=== PATIENT | female | born 1970 | race Caucasian/White ===

== ENCOUNTER 2016-12-10 09:39 | Emergency (ER) | payer OTHER ==
[~2016-12-10] VITALS: Ht 160 cm; Wt 68.9 kg
[2016-12-10 09:55] VITALS: BP 127/90
[2016-12-10 11:04] LABS: MCH 30.1 PG (29.0-34.0); MCHC 34.3 G/DL (30.0-36.0); MCV 87.8 FL (83-99); PLATELET COUNT 228 K/uL (156-360); RBC DIS.WIDTH-CV 12.5 % (11.8-14.6); RBC DIS.WIDTH-SD 39.8 % (39-53); RED BLOOD COUNT 5.01 M/uL (3.80-5.20); WHITE BLOOD COUNT 9.8 K/uL (4.1-10.2)
[2016-12-10 11:16] LABS: CHLORIDE 109 mEq/L (99-109); POTASSIUM 3.6 mEq/L (3.7-5.4); SODIUM 143 mEq/L (136-147)
[2016-12-10 11:18] LABS: GLUCOSE 106 mg/dL (70-99)
[2016-12-10 11:19] LABS: ANION GAP 12 MEQ/L (2-14)
[2016-12-10 11:20] LABS: TOTAL BILIRUBIN 0.4 mg/dL (0.0-1.0)
[2016-12-10 11:22] LABS: ALKALINE PHOSPHATASE 80 IU/L (3-129); GFR ESTIMATE (CALCULATED) > 59 mL/min/
[2016-12-10 11:23] LABS: UREA NITROGEN (BUN) 7 mg/dL (9-23)
[2016-12-10 11:31] LABS: QUANTITATIVE HCG < 4.0 MIU/ML
[2016-12-10 11:54] LABS: ADD MIUA? YES; BILIRUBIN NEGATIVE; BLOOD SMALL; COLOR YELLOW ((YELLOW)); GLUCOSE (STRIP) NEGATIVE; KETONES NEGATIVE; LEUKOCYTES MODERATE; NITRITE NEGATIVE; PROTEIN (STRIP) 30; SPECIFIC GRAVITY 1.014 (1.000-1.030); UROBILINOGEN 0.2 MG/DL (0.2-1.0)
[2016-12-10 12:03] LABS: BACTERIA NONE SEEN /HPF; CALCIUM OXALATE CRYSTALS 2+ /HPF; EPITHELIAL CELLS RARE /HPF; MUCUS 1+ /LPF; UCUL ADDED? NO; WHITE BLOOD CELLS 20-30 /HPF (0-5)
[2016-12-10] MEDS ORDERED: MIRALAX17 GM PO (12:30)
[2016-12-10] MEDS ORDERED: BENTYL20 MG PO (12:30)
[2016-12-10] MEDS ORDERED: CIPRO500 MG PO (12:30)
== END 2016-12-10 13:00 | disposition home or self-care (01) ==
LOC: EME 09:39
DX: K59.00 Constipation, unspecified (principal); N39.0 Urinary tract infection, site not specified
CPT/HCPCS: 74022; 80053; 81003; 84702; 85027; 99281; 99283

== ENCOUNTER 2016-12-12 08:38 | Emergency (ER) | payer OTHER ==
[~2016-12-12] VITALS: Ht 154.9 cm; Wt 67.0 kg
[~2016-12-12 08:38] MED LIST: BENTYL20 MG PO; CIPRO500 MG PO; MIRALAX17 GM PO
[2016-12-12 09:37] LABS: EOSINOPHIL (%) 0 % (0-5); IMMATURE GRANULOCYTE (%) 0.2 % (0.0-0.7); INSTRUMENT ABS NEUTROPHIL CT 6.1 K/uL; LYMPHOCYTE COUNT 1.9 K/uL (1.0-2.8); MCH 29.8 PG (29.0-34.0); MCHC 34.3 G/DL (30.0-36.0); MEAN PLAT.VOLUME 10.9 uM^3 (9.5-12.4); MONOCYTE (%) 5.9 % (3-12); MONOCYTE COUNT 0.5 K/uL (0-0.8); NEUTROPHIL (%) 71.6 % (45-76); NEUTROPHIL COUNT 6.1 K/uL (1.8-6.4); PLATELET COUNT 216 K/uL (156-360); RBC DIS.WIDTH-CV 12.4 % (11.8-14.6); RBC DIS.WIDTH-SD 39.7 % (39-53); RED BLOOD COUNT 4.83 M/uL (3.80-5.20); WHITE BLOOD COUNT 8.5 K/uL (4.1-10.2)
[2016-12-12 09:45] LABS: CHLORIDE 109 mEq/L (99-109); POTASSIUM 3.4 mEq/L (3.7-5.4); SODIUM 141 mEq/L (136-147)
[2016-12-12 09:46] LABS: GLUCOSE 107 mg/dL (70-99)
[2016-12-12 09:48] LABS: ANION GAP 12 MEQ/L (2-14)
[2016-12-12 09:50] LABS: GFR ESTIMATE (CALCULATED) > 59 mL/min/
[2016-12-12 09:51] LABS: UREA NITROGEN (BUN) 8 mg/dL (9-23)
[2016-12-12] MEDS ORDERED: DONNATAL1 TABLET PO (10:45)
[2016-12-12] MEDS ORDERED: CONSTULOSE10 GM/15 M PO (10:45)
[2016-12-12 11:01] VITALS: BP 118/79
== END 2016-12-12 11:12 | disposition home or self-care (01) ==
LOC: EME 08:38
PROVIDERS: Emergency Medicine
DX: K59.00 Constipation, unspecified (principal)
CPT/HCPCS: 74020; 80048; 85025; 99281; 99284

== ENCOUNTER 2016-12-22 13:50 | Emergency (ER) | payer OTHER ==
[~2016-12-22] VITALS: Ht 157.5 cm; Wt 66.5 kg
[~2016-12-22 13:50] MED LIST changes: +CONSTULOSE10 GM/15 M PO; +DONNATAL1 TABLET PO
[2016-12-22 15:14] LABS: EOSINOPHIL (%) 0.1 % (0-5); HEMATOCRIT 43.2 % (36.0-46.0); IMMATURE GRANULOCYTE (%) 0.1 % (0.0-0.7); INSTRUMENT ABS NEUTROPHIL CT 5.6 K/uL; LYMPHOCYTE COUNT 1.9 K/uL (1.0-2.8); MCH 30.2 PG (29.0-34.0); MCHC 34.5 G/DL (30.0-36.0); MCV 87.4 FL (83-99); MEAN PLAT.VOLUME 10.5 uM^3 (9.5-12.4); MONOCYTE COUNT 0.6 K/uL (0-0.8); NEUTROPHIL (%) 68.9 % (45-76); NEUTROPHIL COUNT 5.6 K/uL (1.8-6.4); PLATELET COUNT 223 K/uL (156-360); RBC DIS.WIDTH-CV 12.8 % (11.8-14.6); RED BLOOD COUNT 4.94 M/uL (3.80-5.20); WHITE BLOOD COUNT 8.2 K/uL (4.1-10.2)
[2016-12-22 15:22] LABS: CHLORIDE 110 mEq/L (99-109); SODIUM 144 mEq/L (136-147)
[2016-12-22 15:24] LABS: GLUCOSE 93 mg/dL (70-99)
[2016-12-22 15:25] LABS: ANION GAP 14 MEQ/L (2-14)
[2016-12-22 15:28] LABS: GFR ESTIMATE (CALCULATED) > 59 mL/min/; UREA NITROGEN (BUN) 4 mg/dL (9-23)
[2016-12-22 15:36] LABS: QUANTITATIVE HCG < 4.0 MIU/ML
[2016-12-22 15:59] LABS: ADD MIUA? NO; BILIRUBIN NEGATIVE; BLOOD NEGATIVE; COLOR YELLOW ((YELLOW)); GLUCOSE (STRIP) NEGATIVE; KETONES 20; LEUKOCYTES NEGATIVE; NITRITE NEGATIVE; PROTEIN (STRIP) 30; UCUL ADDED? NO; UROBILINOGEN 0.2 MG/DL (0.2-1.0)
[2016-12-22 21:46] VITALS: BP 130/70
== END 2016-12-22 21:47 | disposition home or self-care (01) ==
LOC: EME 13:50
PROVIDERS: Emergency Medicine
DX: N20.0 Calculus of kidney (principal); F39 Unspecified mood [affective] disorder; F43.23 Adjustment disorder with mixed anxiety and depressed mood; F41.1 Generalized anxiety disorder
CPT/HCPCS: 80048; 81003; 84702; 85025; 90839; 99281; 99285; J1885; J7120

== ENCOUNTER 2016-12-22 23:03 | Inpatient (IN) | payer OTHER ==
[~2016-12-22] VITALS: Ht 157.5 cm; Wt 65.7 kg
[2016-12-23 00:18] LABS: BASOPHIL COUNT 0.1 K/uL (0-0.1); EOSINOPHIL (%) 0.1 % (0-5); HEMATOCRIT 42.2 % (36.0-46.0); IMMATURE GRANULOCYTE (%) 0.6 % (0.0-0.7); IMMATURE GRANULOCYTE COUNT 0.1 K/uL; INSTRUMENT ABS NEUTROPHIL CT 13.8 K/uL; LYMPHOCYTE COUNT 2.2 K/uL (1.0-2.8); MCH 29.9 PG (29.0-34.0); MCHC 33.2 G/DL (30.0-36.0); MEAN PLAT.VOLUME 10.9 uM^3 (9.5-12.4); MONOCYTE (%) 8.2 % (3-12); MONOCYTE COUNT 1.5 K/uL (0-0.8); NEUTROPHIL (%) 78.3 % (45-76); NEUTROPHIL COUNT 13.8 K/uL (1.8-6.4); PLATELET COUNT 220 K/uL (156-360); RBC DIS.WIDTH-CV 13.1 % (11.8-14.6); RBC DIS.WIDTH-SD 42.8 % (39-53); RED BLOOD COUNT 4.69 M/uL (3.80-5.20); WHITE BLOOD COUNT 17.7 K/uL (4.1-10.2)
[2016-12-23 00:28] LABS: CHLORIDE 113 mEq/L (99-109); POTASSIUM 3.6 mEq/L (3.7-5.4); SODIUM 145 mEq/L (136-147)
[2016-12-23 00:30] LABS: GLUCOSE 130 mg/dL (70-99)
[2016-12-23 00:31] LABS: ANION GAP 16 MEQ/L (2-14)
[2016-12-23 00:33] LABS: GFR ESTIMATE (CALCULATED) > 59 mL/min/
[2016-12-23 00:35] LABS: UREA NITROGEN (BUN) 6 mg/dL (9-23)
[2016-12-23 00:37] LABS: SALICYLATE < 5.0 MG/DL (15-30)
[2016-12-23 00:43] LABS: QUANTITATIVE HCG < 4.0 MIU/ML
[2016-12-23 00:54] LABS: SERUM ETHYL ALCOHOL < 10 mg/dL
[2016-12-23 06:10] VITALS: BP 129/81
[2016-12-23 07:47] VITALS: BP 117/68
[2016-12-23 14:32] LABS: EOSINOPHIL (%) 0.4 % (0-5); HEMATOCRIT 41.7 % (36.0-46.0); IMMATURE GRANULOCYTE (%) 0.4 % (0.0-0.7); INSTRUMENT ABS NEUTROPHIL CT 7.7 K/uL; LYMPHOCYTE COUNT 1.5 K/uL (1.0-2.8); MCH 29.5 PG (29.0-34.0); MCHC 32.4 G/DL (30.0-36.0); MCV 91.2 FL (83-99); MEAN PLAT.VOLUME 10.5 uM^3 (9.5-12.4); MONOCYTE (%) 8.6 % (3-12); MONOCYTE COUNT 0.9 K/uL (0-0.8); NEUTROPHIL (%) 75.6 % (45-76); NEUTROPHIL COUNT 7.7 K/uL (1.8-6.4); PLATELET COUNT 215 K/uL (156-360); RBC DIS.WIDTH-CV 13.5 % (11.8-14.6); RBC DIS.WIDTH-SD 45.6 % (39-53); RED BLOOD COUNT 4.57 M/uL (3.80-5.20); WHITE BLOOD COUNT 10.2 K/uL (4.1-10.2)
[2016-12-23 14:58] LABS: ANION GAP 11 MEQ/L (2-14); CHLORIDE 115 MEQ/L (99-109); POTASSIUM 3.8 MEQ/L (3.7-5.4); SAMPLE HEMOLYSIS CHECK 0; SAMPLE ICTERIC CHECK 0; SAMPLE LIPEMIA CHECK 0; SODIUM 144 MEQ/L (136-147); TOTAL BILIRUBIN 0.3 MG/DL (0.0-1.0)
[2016-12-23 15:04] LABS: ALKALINE PHOSPHATASE 50 IU/L (3-129); GFR ESTIMATE (CALCULATED) > 59 mL/min/; GLUCOSE 118 mg/dL (70-99); UREA NITROGEN (BUN) 9 mg/dL (9-23)
[2016-12-23 15:15] LABS: SALICYLATE < 3.0 MG/DL (15-30)
[2016-12-23 16:05] VITALS: BP 150/68
[2016-12-23 20:10] VITALS: BP 130/69
[2016-12-24 00:07] VITALS: BP 126/79
[2016-12-24 05:17] VITALS: BP 133/80
[2016-12-24 06:46] LABS: HEMATOCRIT 37.2 % (36.0-46.0); MCH 30.5 PG (29.0-34.0); MCHC 33.1 G/DL (30.0-36.0); MCV 92.3 FL (83-99); MEAN PLAT.VOLUME 11.1 uM^3 (9.5-12.4); PLATELET COUNT 172 K/uL (156-360); RBC DIS.WIDTH-CV 13.8 % (11.8-14.6); RBC DIS.WIDTH-SD 46.6 % (39-53); RED BLOOD COUNT 4.03 M/uL (3.80-5.20); WHITE BLOOD COUNT 7.7 K/uL (4.1-10.2)
[2016-12-24 06:58] LABS: PROTHROMBIN TIME 11.5 SEC (10.2-12.9)
[2016-12-24 07:14] LABS: ANION GAP 10 MEQ/L (2-14); CHLORIDE 114 MEQ/L (99-109); GFR ESTIMATE (CALCULATED) > 59 mL/min/; GLUCOSE 102 mg/dL (70-99); POTASSIUM 3.1 MEQ/L (3.7-5.4); SAMPLE HEMOLYSIS CHECK 0; SAMPLE ICTERIC CHECK 0; SAMPLE LIPEMIA CHECK 0; SODIUM 142 MEQ/L (136-147); UREA NITROGEN (BUN) 5 mg/dL (9-23)
[2016-12-24 07:15] LABS: ALKALINE PHOSPHATASE 39 IU/L (3-129); ANION GAP 9 MEQ/L (2-14); CHLORIDE 114 MEQ/L (99-109); GFR ESTIMATE (CALCULATED) > 59 mL/min/; GLUCOSE 105 mg/dL (70-99); POTASSIUM 2.9 MEQ/L (3.7-5.4); SAMPLE HEMOLYSIS CHECK 0; SAMPLE ICTERIC CHECK 0; SAMPLE LIPEMIA CHECK 0; SODIUM 142 MEQ/L (136-147); UREA NITROGEN (BUN) 5 mg/dL (9-23)
[2016-12-24 07:16] LABS: SALICYLATE < 3.0 MG/DL (15-30); TOTAL BILIRUBIN 0.4 MG/DL (0.0-1.0)
[2016-12-24 08:43] VITALS: BP 118/71
[2016-12-24] MEDS ORDERED: QUETIAPINE FUMA50 MG PO (15:12)
[2016-12-24] MEDS ORDERED: LORAZEPAM1 MG PO (15:12)
[2016-12-24] MEDS ORDERED: LORAZEPAM0.5 MG PO (15:13)
[2016-12-24 15:25] LABS: ANION GAP 9 MEQ/L (2-14); CHLORIDE 110 MEQ/L (99-109); POTASSIUM 3.1 MEQ/L (3.7-5.4); SAMPLE HEMOLYSIS CHECK 0; SAMPLE ICTERIC CHECK 0; SAMPLE LIPEMIA CHECK 0; SODIUM 141 MEQ/L (136-147)
[2016-12-24 15:31] LABS: GFR ESTIMATE (CALCULATED) > 59 mL/min/; GLUCOSE 128 mg/dL (70-99); UREA NITROGEN (BUN) 6 mg/dL (9-23)
[2016-12-24] MEDS ORDERED: KLOR-CON M2020 MEQ PO (16:20)
[2016-12-24 16:35] VITALS: BP 112/76
[2016-12-24] MEDS ORDERED: VALTREX50 MG/ML PO (19:34)
[2016-12-24] MEDS ORDERED: FOLIC ACID1 MG PO (19:35)
[2016-12-24] MEDS ORDERED: PREVACID30 MG PO (19:35)
== END 2016-12-24 18:28 | DRG 918 ==
LOC: EME → EDBD 23:03 → EME 23:03 → EDOF 12-23 00:17 → 3EAST 12-23 05:29
PROVIDERS: Emergency Medicine; Hospitalist; Internal Medicine
DX: T39.312A Poisoning by propionic acid derivatives, intentional self-harm, initial encounter (principal); R65.10 Systemic inflammatory response syndrome (SIRS) of non-infectious origin without acute organ dysfunction; E87.2 Acidosis; F29 Unspecified psychosis not due to a substance or known physiological condition; E86.0 Dehydration; E87.6 Hypokalemia; F45.1 Undifferentiated somatoform disorder; F32.9 Major depressive disorder, single episode, unspecified; N20.0 Calculus of kidney
CPT/HCPCS: 70450; 80048; 80048 91; 80053; 83735; 84100; 84702; 85025; 85025 91; 85027; 85610; 90837; 93005; 99281; 99285; G0480; J1650; J2405; J7030; J7042; J7120; S0028

== ENCOUNTER 2016-12-24 18:18 | Inpatient (IN) | payer OTHER ==
[~2016-12-24] VITALS: Ht 157.5 cm; Wt 69.3 kg
[~2016-12-24 18:18] MED LIST changes: +KLOR-CON M2020 MEQ PO; +LORAZEPAM0.5 MG PO; +LORAZEPAM1 MG PO; +QUETIAPINE FUMA50 MG PO
[2016-12-24 18:40] VITALS: BP 133/74
[2016-12-24] MEDS ORDERED: VALTREX50 MG/ML PO (19:34)
[2016-12-24] MEDS ORDERED: PREVACID30 MG PO (19:35)
[2016-12-24] MEDS ORDERED: FOLIC ACID1 MG PO (19:35)
[2016-12-25 07:39] VITALS: BP 110/71
[2016-12-25 15:51] VITALS: BP 124/71
[2016-12-26 07:52] VITALS: BP 99/58
[2016-12-26 15:41] VITALS: BP 107/68
[2016-12-27 07:33] VITALS: BP 93/56
[2016-12-27 10:44] VITALS: BP 114/71
[2016-12-27 15:48] VITALS: BP 119/76
[2016-12-28 07:53] VITALS: BP 106/51
[2016-12-28 16:08] VITALS: BP 135/75
[2016-12-29 08:11] VITALS: BP 109/69
[2016-12-29 15:42] VITALS: BP 126/77
[2016-12-30 07:45] VITALS: BP 113/63
[2016-12-30 15:39] VITALS: BP 121/72
[2016-12-31 07:47] VITALS: BP 105/62
[2016-12-31 15:54] VITALS: BP 130/75
[2017-01-01 07:41] VITALS: BP 99/58
[2017-01-01] MEDS ORDERED: LORAZEPAM1 MG PO (08:57)
[2017-01-01] MEDS ORDERED: FLUOXETINE HCL20 MG PO (08:57)
[2017-01-01] MEDS ORDERED: SEROQUEL100 MG PO (08:57)
[2017-01-01] MEDS ORDERED: QUETIAPINE FUMA50 MG PO (08:57)
== END 2017-01-01 14:14 | disposition home or self-care (01) | DRG 882 ==
LOC: 1WEST 18:18
DX: F45.9 Somatoform disorder, unspecified (principal); R45.851 Suicidal ideations; F23 Brief psychotic disorder; F33.9 Major depressive disorder, recurrent, unspecified; F70 Mild intellectual disabilities; F84.0 Autistic disorder; N20.0 Calculus of kidney; Z91.14 Patient's other noncompliance with medication regimen
CPT/HCPCS: 97150 GO; 97165 GO